=== PATIENT | male | born 1975 | race Caucasian/White ===

== ENCOUNTER 2016-06-05 20:37 | Emergency (ER) | payer BC ==
[2016-06-05 20:46] VITALS: BP 142/94
[2016-06-05] MEDS ORDERED: Take Home: Oseltamivir 75 MG Cap, 2 Cap Pack PO ONE (21:30)
--- NOTE | 2016-06-07 08:42 | ER ---
Date of Service: 06/05/2016 SUBJECTIVE: Raúl presents to the emergency room with fever, chills, and weakness. He states that he has been experiencing these symptoms for several days. Denies any nausea or vomiting. He states that he is experiencing some cough. Denies any skin rashes. He states that he is experiencing some sore throat and rhinorrhea. To note, he has not received his influenza vaccination this year. PAST MEDICAL HISTORY: None. MEDICATIONS: None. ALLERGIES: NKDA. REVIEW OF SYSTEMS: Please see history of present illness. GI: Denies any nausea, vomiting, or diarrhea. No melena, hematochezia, or hematemesis. : Denies any dysuria. PHYSICAL EXAMINATION: General: This is a 40-year-old male patient, in no acute distress. Vital Signs: Temperature is 38.9, pulse rate is 89, blood pressure is 142/94, respiratory rate is 18, and O2 saturations 97%. Skin: Warm, pink, and dry. Abdomen: Soft, nontender. There is no hepatosplenomegaly or masses noted. Extremities: Without edema. Neurologic: The patient is alert and oriented. Answers all questions appropriately. LABORATORY DATA: Laboratory data was obtained. The patient did test positive for influenza B. ASSESSMENT: Influenza B. PLAN: The patient will be discharged. Does not meet criteria for Tamiflu. Drink plenty of fluids. Tylenol, ibuprofen for discomfort. All questions were answered. MWK: 06/07/2016 05:27:04 MODL: 06/07/2016 06:18:24 /[id number]
== END 2016-06-05 21:43 ==
LOC: VM.ED 20:37
DX: J10.1 Influenza due to other identified influenza virus with other respiratory manifestations (principal)
CPT/HCPCS: 87804; 99283; A9270